=== PATIENT | female | born 1970 | race Caucasian/White ===

== ENCOUNTER 2023-07-13 10:52 | Emergency (ER) | payer OTHER, SELFPAY ==
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
--- NOTE | ~2023-07-13 | CT_ITS ---
EXAMINATION: CT brain wo con DATE: 07/13/2023 12:23 INDICATION: TECHNIQUE: Computed tomography (CT) of the head was performed without intravenous contrast. The dose- length product was 605.33 mGy-cm. Automated exposure control and iterative reconstruction technique w ere employed. COMPARISON: None FINDINGS: Normal brain parenchymal volume for age. No ventriculomegaly or midline shift. No acute int racranial hemorrhage, infarction, mass or mass effect. There is a chronic right frontal lobe infarcti on. There is mild mucosal thickening of the paranasal sinuses. Mastoids are pneumatized. No depressed skull fractures. IMPRESSION: 1. No acute intracranial abnormality. 2: Chronic right frontal lobe infarction. Reviewed, dictated and finalized at location B.
[2023-07-13 10:51] VITALS: BP 106/70; PULSE 79; RESP 16; TEMP 36.7; O2SAT 100
--- NOTE | 2023-07-13 10:59 | ECG_ITS ---
SEE SCANNED COPY FOR CONFIRMED REPORT MTDD
[2023-07-13 11:23] LABS: Basophils Absolute Auto 0.1 K/mm3 (0.0-0.1); Basophils Percent Auto 0.8 % (0.2-1.2); Eosinophils Absolute Auto 0.1 K/mm3 (0-0.3); Eosinophils Percent Auto 1.5 % (0-4.4); Hematocrit 47.6 % (37.0-47.0); Hemoglobin 15.8 g/dL (12.0-15.0); Immature Granulocyte Absolute 0.02 K/mm3 (0.00-0.031); Immature Granulocyte Percent A 0.3 % (0-0.5); Lymphocytes Absolute Auto 2.34 K/mm3 (0.9-3.2); Lymphocytes Percent Auto 31.8 % (18.3-44.2); Mean Corpuscular HGB Conc 33.2 g/dl (32-36); Mean Corpuscular Hemoglobin 28.9 pg (26-34); Mean Platelet Volume 10.1 fl (7.4-10.4); Monocytes Absolute Auto 0.4 K/mm3 (0.1-0.6); Monocytes Percent Auto 5.8 % (2.6-8.5); Neutrophils Absolute Auto 4.4 K/mm3 (1.3-6.7); Neutrophils Percent Auto 59.8 % (45.5-73.1); Platelet Count Result 198 k/mm3 (150-375); Red Blood Count 5.47 M/mm3 (4.2-5.4); Red Cell Distribution Width 13.2 % (11.5-14.5); White Blood Count 7.4 K/mm3 (4.5-10.0)
[2023-07-13 11:26] LABS: Prothrombin Time 13.8 Seconds (11.1-14.7)
[2023-07-13 11:28] LABS: Partial Thromboplastin Time 32.6 Seconds (22.3-36.8)
[2023-07-13 11:32] LABS: Alanine Aminotransferase 27 U/L (6-35); Albumin Level 4.7 g/dL (3.5-5.1); Alkaline Phosphatase 129 U/L (38-126); Anion Gap 11 mmol/L (4-12); Aspartate Amino Transferase 29 U/L (14-36); Blood Urea Nitrogen 21 mg/dL (7-17); Calcium 9.5 mg/dL (8.4-10.2); Carbon Dioxide 21 mmol/L (22-30); Chloride 108 mmol/L (98-107); Estimated CRCL calculation 81 ml/min; Estimated Glomerular Filt Rate > 60; Glucose 90 mg/dL (65-110); Lipase 62 U/L (23-300); Potassium 3.6 mmol/L (3.4-5.0); Sodium 140 mmol/L (137-145)
[2023-07-13 11:43] LABS: Troponin I < 0.012 ng/mL (0.000-0.034)
[2023-07-13 12:00] VITALS: BP 110/82; PULSE 76; RESP 14; O2SAT 100
[2023-07-13 12:08] LABS: Appearance Urine Clear (Clear); Color Urine Yellow (Yellow); Glucose Urine UA 2+ mg/dL (Negative); Protein Urine Negative (Negative)
[2023-07-13 12:09] LABS: Add Urine Microscopic? YES; Bilirubin Urine Negative (Negative); Blood Urine Negative (Negative); Ketones Urine Negative (Negative); Leukocyte Esterase Ur Trace LEU/UL (Negative); Nitrate Urine Negative (Negative); WBC Urine 0-3 /hpf (0-3)
[2023-07-13 12:10] LABS: Bacteria Urine None seen /hpf; Squamous Epithelial Cell Urine Rare /hpf (Few)
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
[2023-07-13 13:00] VITALS: BP 109/74; PULSE 71; RESP 14; O2SAT 97
[2023-07-13 13:14] LABS: Glucose Point of Care 64 mg/dl (65-105)
== END 2023-07-13 13:30 | disposition home or self-care (01) ==
PROVIDERS: Emergency Provider Emergency Medicine
DX: S30.1XXA Contusion of abdominal wall, initial encounter (principal); I25.10 Atherosclerotic heart disease of native coronary artery without angina pectoris; E11.9 Type 2 diabetes mellitus without complications; I10 Essential (primary) hypertension; Z95.1 Presence of aortocoronary bypass graft; Z79.02 Long term (current) use of antithrombotics/antiplatelets; Z79.82 Long term (current) use of aspirin; Z79.4 Long term (current) use of insulin; E04.2 Nontoxic multinodular goiter; R94.31 Abnormal electrocardiogram [ECG] [EKG]; V43.52XA Car driver injured in collision with other type car in traffic accident, initial encounter
CPT/HCPCS: 36415; 70450; 71260; 74177; 80053; 81001; 82948; 83690; 84484; 85025; 85610; 85730; 93005; 99284; Q9967